=== PATIENT | female | born 2000 | race Caucasian/White ===

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

== ENCOUNTER 2021-03-20 19:31 | Emergency (ER) | payer MEDICAID ==
[~2021-03-20] VITALS: Ht 154.9 cm; Wt 74.5 kg
[~2021-03-20 19:31] MED LIST changes: +MOTRIN 800800 MG/TAB PO; +PERCOCET 325 MG1 TA2 PO; +PROCARDIA XL 6060 MG PO; +SLOW FE142 MG PO; +VITAMIN C500 MG
[2021-03-20] MEDS ORDERED: AMOXICILLIN 8751 TAB PO (20:13)
[2021-03-20] MEDS ORDERED: IBU800 M1 PO (20:13)
[2021-03-20 20:23] VITALS: BP 116/64; PULSE 80; TEMP 99
== END 2021-03-20 20:18 | disposition home or self-care (01) ==
LOC: COL.ER 19:31
DX: K04.7 Periapical abscess without sinus (principal)
CPT/HCPCS: J1885

== ENCOUNTER → 2022-12-30 | Outpatient (RCR) | payer MEDICAID ==
[~2022-12-30] MED LIST changes: +AMOXICILLIN 8751 TAB PO; +IBU800 M1 PO
== END | disposition home or self-care (01) ==
LOC: MKS.ESL.PT
DX: M54.16 Radiculopathy, lumbar region (principal)

== ENCOUNTER 2023-01-22 15:00 | Outpatient (RCR) | payer MEDICAID | END 2023-01-30 | disposition home or self-care (01) | LOC: MKS.ESL.PT | DX: M54.16 Radiculopathy, lumbar region (principal) ==